=== PATIENT | female | born 1960 | race Caucasian/White ===

== ENCOUNTER 2019-01-19 08:44 | Observation (INO) | payer BC ==
[2019-01-19] MEDS ORDERED: LORazepam 2 MG/ML SDV IVPUSH ONE (08:53)
[2019-01-19] MEDS ORDERED: Nitroglycerin 2% Oint 1 GM UD Packet TOP ONE (08:53)
[2019-01-19] MEDS ORDERED: Aspirin 81 MG Tab.Chew PO ONE (08:53)
--- NOTE | 2019-01-19 08:59 | EDM.PDOC ---
ED HPI GENERAL MEDICAL PROBLEM - General Chief Complaint: Chest Pain Stated Complaint: SOB Time Seen by Provider: 01/19/19 08:47 - History of Present Illness INITIAL COMMENTS - FREE TEXT/NARRATIVE: HISTORY AND PHYSICAL: History of present illness: Patient is 58-year-old white female presents with a concern of shortness of breath and vague chest discomfort that started earlier today she had a similar episode years ago that was unexplained. She denies history of coronary artery disease stroke denies known hypertension hypercholesterolemia or diabetes. She' s quite anxious on arrival Review of systems: As per history of present illness and below otherwise all systems reviewed and negative. Past medical history: As per history of present illness and as reviewed below otherwise noncontributory. Surgical history: As per history of present illness and as reviewed below otherwise noncontributory. Social history: No reported history of drug or alcohol abuse. Family history: As per history of present illness and as reviewed below otherwise noncontributory. Physical exam: HEENT: Atraumatic, normocephalic, pupils reactive, negative for conjunctival pallor or scleral icterus, mucous membranes moist, throat clear, neck supple, nontender, trachea midline. Lungs: Clear to auscultation, breath sounds equal bilaterally, chest nontender. Heart: S1S2, regular, negative for clicks, rubs, or JVD. Abdomen: Soft, nondistended, nontender. Negative for masses or hepatosplenomegaly. Negative for costovertebral tenderness. Pelvis: Stable nontender. Genitourinary: Deferred. Rectal: Deferred. Extremities: Atraumatic, negative for cords or calf pain. Neurovascular unremarkable. Neuro: Awake, alert, oriented. Cranial nerves II through XII unremarkable. Cerebellum unremarkable. Motor and sensory unremarkable throughout. Exam nonfocal. Diagnostics: CBC CMP troponin PT/INR chest x-ray EKG Therapeutics: IV O2 monitor aspirin 325 mg by mouth Nitropaste 1 inch to chest wall Ativan 1 mg IV Impression: #1 dyspnea #2 chest Definitive disposition and diagnosis as appropriate pending reevaluation and review of above. Left Chest Pain Score (Numeric/FACES): 4 - Related Data Allergies Allergy/AdvReac Type Severity Reaction Status Date / Time Penicillins Allergy Airway Verified 01/19/19 09:35 Tightness Sulfa (Sulfonamide Allergy Hives Verified 01/19/19 09:35 Antibiotics) Home Meds: Home Meds . [No Known Home Meds] 01/19/19 [History] Past Medical History - Infectious Disease History Infectious Disease History: Reports: Chicken Pox - Past Surgical History Musculoskeletal Surgical History: Reports: Other (See Below) Other Musculoskeletal Surgeries/Procedures:: neck surgery, back surgery Social & Family History - Family History Family Medical History: Noncontributory - Tobacco Use Smoking Status *Q: Never Smoker - Recreational Drug Use Recreational Drug Use: No ED ROS GENERAL - Review of Systems Review Of Systems: ROS reveals no pertinent complaints other than HPI. ED EXAM, GENERAL - Physical Exam Exam: See Below (See dictation) Course - Vital Signs Last Recorded V/S: Last Vital Signs Temp 36.6 C 01/19/19 08:50 Pulse 86 01/19/19 08:50 Resp 18 01/19/19 08:50 BP 152/92 H 01/19/19 08:50 Pulse Ox 97 01/19/19 08:50 - Orders/Labs/Meds Orders: Active Orders 24 hr Category Date Time Status EKG 12 Lead [EKG Documentation Completion] [RC] STAT Care 01/19/19 10:09 Active EKG Documentation Completion [RC] STAT Care 01/19/19 08:52 Active Labs: Laboratory Tests 01/19/19 01/19/19 01/19/19 Range/Units 08:55 08:55 08:55 WBC 5.82 (4.0-11.0) K/uL RBC 4.89 (4.30-5.90) M/uL Hgb 15.4 (12.0-16.0) g/dL Hct 45.3 (36.0-46.0) % MCV 92.6 (80.0-98.0) fL MCH 31.5 (27.0-32.0) pg MCHC 34.0 (31.0-37.0) g/dL RDW Std Deviation 46.6 (28.0-62.0) fl RDW Coeff of Miguel 14 (11.0-15.0) % Plt Count 194 (150-400) K/uL MPV 10.00 (7.40-12.00) fL Neut % (Auto) 65.4 (48.0-80.0) % Lymph % (Auto) 21.6 (16.0-40.0) % [place] % (Auto) 9.3 (0.0-15.0) % Eos % (Auto) 3.4 (0.0-7.0) % Baso % (Auto) 0.3 (0.0-1.5) % Neut # (Auto) 3.8 (1.4-5.7) K/uL Lymph # (Auto) 1.3 (0.6-2.4) K/uL [place] # (Auto) 0.5 (0.0-0.8) K/uL Eos # (Auto) 0.2 (0.0-0.7) K/uL Baso # (Auto) 0.0 (0.0-0.1) K/uL Nucleated RBC % 0.0 /100WBC Nucleated RBCs # 0 K/uL INR 0.99 D-Dimer, Quantitative (0.0-0.50) mg/L FEU Sodium 137 (136-145) mmol/L Potassium 3.8 (3.5-5.1) mmol/L Chloride 103 (98-107) mmol/L Carbon Dioxide 23.5 (21.0-32.0) mmol/L BUN 10 (7.0-18.0) mg/dL Creatinine 1.0 (0.6-1.0) mg/dL Est Cr Clr Drug Dosing TNP Estimated GFR (MDRD) 56.7 ml/min Glucose 90 (74-106) mg/dL Calcium 9.4 (8.5-10.1) mg/dL Total Bilirubin 0.5 (0.2-1.0) mg/dL AST 37 (15-37) IU/L ALT 43 (14-63) IU/L Alkaline Phosphatase 78 (46-116) U/L Troponin I < 0.050 (0.000-0.056) ng/mL Total Protein 7.7 (6.4-8.2) g/dL Albumin 4.0 (3.4-5.0) g/dL Globulin 3.7 (2.6-4.0) g/dL Albumin/Globulin Ratio 1.1 (0.9-1.6) 01/19/19 Range/Units 08:55 WBC (4.0-11.0) K/uL RBC (4.30-5.90) M/uL Hgb (12.0-16.0) g/dL Hct (36.0-46.0) % MCV (80.0-98.0) fL MCH (27.0-32.0) pg MCHC (31.0-37.0) g/dL RDW Std Deviation (28.0-62.0) fl RDW Coeff of Miguel (11.0-15.0) % Plt Count (150-400) K/uL MPV (7.40-12.00) fL Neut % (Auto) (48.0-80.0) % Lymph % (Auto) (16.0-40.0) % [place] % (Auto) (0.0-15.0) % Eos % (Auto) (0.0-7.0) % Baso % (Auto) (0.0-1.5) % Neut # (Auto) (1.4-5.7) K/uL Lymph # (Auto) (0.6-2.4) K/uL [place] # (Auto) (0.0-0.8) K/uL Eos # (Auto) (0.0-0.7) K/uL Baso # (Auto) (0.0-0.1) K/uL Nucleated RBC % /100WBC Nucleated RBCs # K/uL INR D-Dimer, Quantitative 0.29 (0.0-0.50) mg/L FEU Sodium (136-145) mmol/L Potassium (3.5-5.1) mmol/L Chloride (98-107) mmol/L Carbon Dioxide (21.0-32.0) mmol/L BUN (7.0-18.0) mg/dL Creatinine (0.6-1.0) mg/dL Est Cr Clr Drug Dosing Estimated GFR (MDRD) ml/min Glucose (74-106) mg/dL Calcium (8.5-10.1) mg/dL Total Bilirubin (0.2-1.0) mg/dL AST (15-37) IU/L ALT (14-63) IU/L Alkaline Phosphatase (46-116) U/L Troponin I (0.000-0.056) ng/mL Total Protein (6.4-8.2) g/dL Albumin (3.4-5.0) g/dL Globulin (2.6-4.0) g/dL Albumin/Globulin Ratio (0.9-1.6) Meds: Medications Discontinued Medications Generic Name Dose Route Start Last Admin Trade Name Yazmin PRN Reason Stop Dose Admin Aspirin 324 mg 01/19/19 08:53 01/19/19 09:08 Aspirin PO 01/19/19 08:54 324 mg ONETIME ONE Administration Lorazepam 1 mg 01/19/19 08:53 01/19/19 09:10 Ativan IVPUSH 01/19/19 08:54 1 mg ONETIME ONE Administration Nitroglycerin 1 gm 01/19/19 08:53 01/19/19 09:06 Nitro-Bid 2% TOP 01/19/19 08:54 1 gm ONETIME ONE Administration Departure - Departure Time of Disposition: 10:49 Disposition: Refer to Observation Condition: Good Clinical Impression: Chest pain - Discharge Information Forms: ED Department Discharge - My Orders Last 24 Hours: My Active Orders 01/19/19 08:52 EKG Documentation Completion [RC] STAT 01/19/19 10:09 EKG 12 Lead [EKG Documentation Completion] [RC] STAT - Assessment/Plan Last 24 Hours: My Active Orders 01/19/19 08:52 EKG Documentation Completion [RC] STAT 01/19/19 10:09 EKG 12 Lead [EKG Documentation Completion] [RC] STAT
--- NOTE | 2019-01-19 09:30 | CR ---
EXAMINATION: Portable chest radiograph. HISTORY: Chest pain. FINDINGS: The trachea is midline. The cardiomediastinal silhouette is within normal limits. No pulmonary infiltrates, effusions or pneumothorax. Osseous structures appear unremarkable. IMPRESSION: No acute cardiopulmonary process.
[2019-01-19 09:40] LABS: CHLORIDE,CL 103 mmol/L (98-107); SODIUM,NA 137 mmol/L (136-145)
[2019-01-19] MEDS ORDERED: Ondansetron 4 MG/2 ML SDV IVPUSH PRN (12:02)
[2019-01-19] MEDS ORDERED: Albuterol/Ipratropium 3.0-0.5 MG/3 ML Neb Soln NEB PRN (12:02)
[2019-01-19] MEDS ORDERED: Acetaminophen 325 MG Tab PO PRN (12:02)
[2019-01-19] MEDS ORDERED: predniSONE 20 MG Tab PO ONE (12:04)
[2019-01-19] MEDS ORDERED: Levofloxacin 500 MG Tab PO SCH (12:15)
--- NOTE | 2019-01-19 12:16 | PCM.HP ---
H&P History of Present Illness - General Date of Service: 01/19/19 Admit Problem/Dx: Admission Diagnosis/Problem Admission Diagnosis/Problem Chest pain - History of Present Illness Initial Comments - Free Text/Narative: 58 yo female who reports several week history of worsening cough and cold symptoms. She reports productive cough and chest congestion. She reports subjective fevers. She reports one week of chest tightness and one day history of shortness of breath. She reports pleuritic chest pain when she takes a deep breath. In the ED she was noted to have a heart rate of 77 bpm. Left Chest Pain Score (Numeric/FACES): 4 - Related Data Allergies/Adverse Reactions: Allergies Allergy/AdvReac Type Severity Reaction Status Date / Time Penicillins Allergy Airway Verified 01/19/19 09:35 Tightness Sulfa (Sulfonamide Allergy Hives Verified 01/19/19 09:35 Antibiotics) Home Medications: Home Meds . [No Known Home Meds] 01/19/19 [History] Past Medical History - Infectious Disease History Infectious Disease History: Reports: Chicken Pox - Past Surgical History Musculoskeletal Surgical History: Reports: Other (See Below) Other Musculoskeletal Surgeries/Procedures:: neck surgery, back surgery Social & Family History - Family History Family Medical History: Noncontributory - Tobacco Use Smoking Status *Q: Never Smoker - Recreational Drug Use Recreational Drug Use: No H&P Review of Systems - Review of Systems: Review Of Systems: ROS reveals no pertinent complaints other than HPI. Exam - Exam Exam: See Below - Vital Signs Vital Signs: Last Vital Signs Temp 36.6 C 01/19/19 08:50 Pulse 86 01/19/19 08:50 Resp 18 01/19/19 08:50 BP 152/92 H 01/19/19 08:50 Pulse Ox 97 01/19/19 08:50 Weight: 66.7 kg - Exam General: Alert, Oriented Lungs: Clear to Auscultation, Normal Respiratory Effort Cardiovascular: Regular Rate, Regular Rhythm GI/Abdominal Exam: Soft, Non-Tender Extremities: Non-Tender, No Pedal Edema Skin: Warm, Dry, Intact - Patient Data Lab Results Last 24 hrs: Laboratory Results - last 24 hr 01/19/19 01/19/19 01/19/19 Range/Units 08:55 08:55 08:55 WBC 5.82 (4.0-11.0) K/uL RBC 4.89 (4.30-5.90) M/uL Hgb 15.4 (12.0-16.0) g/dL Hct 45.3 (36.0-46.0) % MCV 92.6 (80.0-98.0) fL MCH 31.5 (27.0-32.0) pg MCHC 34.0 (31.0-37.0) g/dL RDW Std Deviation 46.6 (28.0-62.0) fl RDW Coeff of Miguel 14 (11.0-15.0) % Plt Count 194 (150-400) K/uL MPV 10.00 (7.40-12.00) fL Neut % (Auto) 65.4 (48.0-80.0) % Lymph % (Auto) 21.6 (16.0-40.0) % [place] % (Auto) 9.3 (0.0-15.0) % Eos % (Auto) 3.4 (0.0-7.0) % Baso % (Auto) 0.3 (0.0-1.5) % Neut # (Auto) 3.8 (1.4-5.7) K/uL Lymph # (Auto) 1.3 (0.6-2.4) K/uL [place] # (Auto) 0.5 (0.0-0.8) K/uL Eos # (Auto) 0.2 (0.0-0.7) K/uL Baso # (Auto) 0.0 (0.0-0.1) K/uL Nucleated RBC % 0.0 /100WBC Nucleated RBCs # 0 K/uL INR 0.99 D-Dimer, Quantitative (0.0-0.50) mg/L FEU Sodium 137 (136-145) mmol/L Potassium 3.8 (3.5-5.1) mmol/L Chloride 103 (98-107) mmol/L Carbon Dioxide 23.5 (21.0-32.0) mmol/L BUN 10 (7.0-18.0) mg/dL Creatinine 1.0 (0.6-1.0) mg/dL Est Cr Clr Drug Dosing TNP Estimated GFR (MDRD) 56.7 ml/min Glucose 90 (74-106) mg/dL Calcium 9.4 (8.5-10.1) mg/dL Total Bilirubin 0.5 (0.2-1.0) mg/dL AST 37 (15-37) IU/L ALT 43 (14-63) IU/L Alkaline Phosphatase 78 (46-116) U/L Troponin I < 0.050 (0.000-0.056) ng/mL Total Protein 7.7 (6.4-8.2) g/dL Albumin 4.0 (3.4-5.0) g/dL Globulin 3.7 (2.6-4.0) g/dL Albumin/Globulin Ratio 1.1 (0.9-1.6) 01/19/19 Range/Units 08:55 WBC (4.0-11.0) K/uL RBC (4.30-5.90) M/uL Hgb (12.0-16.0) g/dL Hct (36.0-46.0) % MCV (80.0-98.0) fL MCH (27.0-32.0) pg MCHC (31.0-37.0) g/dL RDW Std Deviation (28.0-62.0) fl RDW Coeff of Miguel (11.0-15.0) % Plt Count (150-400) K/uL MPV (7.40-12.00) fL Neut % (Auto) (48.0-80.0) % Lymph % (Auto) (16.0-40.0) % [place] % (Auto) (0.0-15.0) % Eos % (Auto) (0.0-7.0) % Baso % (Auto) (0.0-1.5) % Neut # (Auto) (1.4-5.7) K/uL Lymph # (Auto) (0.6-2.4) K/uL [place] # (Auto) (0.0-0.8) K/uL Eos # (Auto) (0.0-0.7) K/uL Baso # (Auto) (0.0-0.1) K/uL Nucleated RBC % /100WBC Nucleated RBCs # K/uL INR D-Dimer, Quantitative 0.29 (0.0-0.50) mg/L FEU Sodium (136-145) mmol/L Potassium (3.5-5.1) mmol/L Chloride (98-107) mmol/L Carbon Dioxide (21.0-32.0) mmol/L BUN (7.0-18.0) mg/dL Creatinine (0.6-1.0) mg/dL Est Cr Clr Drug Dosing Estimated GFR (MDRD) ml/min Glucose (74-106) mg/dL Calcium (8.5-10.1) mg/dL Total Bilirubin (0.2-1.0) mg/dL AST (15-37) IU/L ALT (14-63) IU/L Alkaline Phosphatase (46-116) U/L Troponin I (0.000-0.056) ng/mL Total Protein (6.4-8.2) g/dL Albumin (3.4-5.0) g/dL Globulin (2.6-4.0) g/dL Albumin/Globulin Ratio (0.9-1.6) Result Diagrams: 01/19/19 08:55 01/19/19 08:55 Joel Results Last 24 hrs: Microbiology 01/19/19 08:56 Influenza Type A Antigen Screen - Final Nasopharyngeal Swab NEGATIVE INFLUENZA A VIRUS AG Influenza Type B Antigen Screen - Final NEGATIVE INFLUENZA B VIRUS AG Problem List Initiated/Reviewed/Updated: Yes Orders Last 24hrs: Active Orders 24 hr Category Date Time Status Patient Status [ADT] Stat ADT 01/19/19 10:54 Active Antiembolic Devices [RC] PER UNIT ROUTINE Care 01/19/19 12:03 Ordered EKG 12 Lead [EKG Documentation Completion] [RC] STAT Care 01/19/19 10:09 Active EKG Documentation Completion [RC] STAT Care 01/19/19 08:52 Active Oxygen Therapy [RC] PRN Care 01/19/19 12:02 Ordered RT Aerosol Therapy [RC] ASDIRECTED Care 01/19/19 12:03 Ordered Up ad An [RC] ASDIRECTED Care 01/19/19 12:02 Ordered VTE/DVT Education [RC] PER UNIT ROUTINE Care 01/19/19 12:02 Ordered Vital Signs [RC] Q4H Care 01/19/19 12:02 Ordered Regular Diet [DIET] Diet 01/19/19 Breakfast Ordered BASIC METABOLIC PANEL,BMP [CHEM] AM Lab 01/20/19 05:11 Ordered CBC WITH AUTO DIFF [HEME] AM Lab 01/20/19 05:11 Ordered TROPONIN I [CHEM] Q6H Lab 01/19/19 15:00 Ordered TROPONIN I [CHEM] Q6H Lab 01/19/19 21:00 Ordered Acetaminophen [Tylenol] Med 01/19/19 12:02 Ordered 650 mg PO Q4H PRN Albuterol/Ipratropium [DuoNeb 3.0-0.5 MG/3 ML] Med 01/19/19 12:02 Ordered 3 ml NEB Q4HRRT PRN Ondansetron [Zofran] Med 01/19/19 12:02 Ordered 4 mg IVPUSH Q4H PRN levoFLOXacin [Levaquin] Med 01/19/19 12:15 Ordered 500 mg PO Q24H predniSONE Med 01/19/19 12:04 Once 40 mg PO ONETIME ONE Sequential Compression Device [OM.PC] Per Unit Routine Oth 01/19/19 12:03 Ordered Resuscitation Status Routine Resus Stat 01/19/19 12:02 Ordered Assessment/Plan Comment:: 58 yo female presenting with cough, shortness of breath and chest pain. Suspect acute bronchitis Bronchitis: treating with duonebs, levaquin and prednisone Atypical chest pain: EKG showed minimal ST segment depressions on inferior leads , will trend cardiac enzymes
[2019-01-19] MEDS ORDERED: Sodium Chloride 0.65% Nasal Spray 45 ML Bottle NAS PRN (18:33)
[2019-01-19] MEDS ORDERED: Benzonatate 100 MG Cap PO PRN (18:50)
[2019-01-19] MEDS ORDERED: SUMAtriptan 50 MG Tab PO ONE (19:34)
[2019-01-20 05:35] LABS: CHLORIDE,CL 103 mmol/L (98-107); SODIUM,NA 139 mmol/L (136-145)
--- NOTE | 2019-01-20 20:03 | PCM.DCSUM1 ---
Discharge Summary - Hospital Course Diagnosis: Stroke: No Modified Gadsden Scale: No Symptoms at All Modified Gadsden Scale Score: 0 - Discharge Data Discharge Disposition: Home, Self-Care 01 Condition: Stable - Patient Instructions Diet: Usual Diet as Tolerated - Discharge Plan Prescriptions/Med Rec: Albuterol Sulfate [Proair Hfa] 8.5 gm IH Q6H PRN 30 Days #1 hfa.aer.ad PRN Reason: Shortness Of Breath levoFLOXacin [Levaquin] 500 mg PO Q24H 4 Days #4 tablet Home Medications: Home Meds Albuterol Sulfate [Proair Hfa] 8.5 gm IH Q6H PRN 30 Days #1 hfa.aer.ad 01/20/19 [Rx] levoFLOXacin [Levaquin] 500 mg PO Q24H 4 Days #4 tablet 01/20/19 [Rx] Patient Handouts: Nonspecific Chest Pain, [id number], Levofloxacin tablets, Albuterol inhalation solution Forms: Return to Work/Inpatient [facility] Referrals: Fide Hdez MD [Ordering Only Provider] - 01/28/19 9:15 am - Patient Data Vitals - Most Recent: Last Vital Signs Temp 36.5 C 01/20/19 07:46 Pulse 92 01/20/19 07:46 Resp 15 01/20/19 07:46 BP 130/101 H 01/20/19 07:46 Pulse Ox 97 01/20/19 07:46 Weight - Most Recent: 66.7 kg I&O - Last 24 hours: Intake & Output 01/20/19 01/20/19 01/20/19 06:59 14:59 22:59 Intake Total 900 Output Total 900 Balance 0 Lab Results - Last 24 hrs: Laboratory Results - last 24 hr 01/19/19 01/20/19 01/20/19 Range/Units 21:06 04:58 04:58 WBC 4.12 (4.0-11.0) K/uL RBC 4.85 (4.30-5.90) M/uL Hgb 15.3 (12.0-16.0) g/dL Hct 44.7 (36.0-46.0) % MCV 92.2 (80.0-98.0) fL MCH 31.5 (27.0-32.0) pg MCHC 34.2 (31.0-37.0) g/dL RDW Std Deviation 44.9 (28.0-62.0) fl RDW Coeff of Miguel 13 (11.0-15.0) % Plt Count 204 (150-400) K/uL MPV 9.90 (7.40-12.00) fL Neut % (Auto) 87.0 H (48.0-80.0) % Lymph % (Auto) 10.9 L (16.0-40.0) % Lucas % (Auto) 1.9 (0.0-15.0) % Eos % (Auto) 0.0 (0.0-7.0) % Baso % (Auto) 0.2 (0.0-1.5) % Neut # (Auto) 3.6 (1.4-5.7) K/uL Lymph # (Auto) 0.5 L (0.6-2.4) K/uL Lucas # (Auto) 0.1 (0.0-0.8) K/uL Eos # (Auto) 0.0 (0.0-0.7) K/uL Baso # (Auto) 0.0 (0.0-0.1) K/uL Nucleated RBC % 0.0 /100WBC Nucleated RBCs # 0 K/uL Sodium 139 (136-145) mmol/L Potassium 4.3 (3.5-5.1) mmol/L Chloride 103 (98-107) mmol/L Carbon Dioxide 25.7 (21.0-32.0) mmol/L BUN 11 (7.0-18.0) mg/dL Creatinine 0.7 (0.6-1.0) mg/dL Est Cr Clr Drug Dosing 71.58 mL/min Estimated GFR (MDRD) > 60.0 ml/min Glucose 133 H (74-106) mg/dL Calcium 9.5 (8.5-10.1) mg/dL Troponin I < 0.050 (0.000-0.056) ng/mL Med Orders - Current: Current Medications Discontinued Medications Acetaminophen (Tylenol) 650 mg PO Q4H PRN PRN Reason: Pain (Mild 1-3)/fever Last Admin: 01/19/19 13:57 Dose: 650 mg Albuterol/Ipratropium (Duoneb 3.0-0.5 Mg/3 Ml) 3 ml NEB Q4HRRT PRN PRN Reason: Shortness Of Breath/wheezing Last Admin: 01/19/19 15:00 Dose: 3 ml Aspirin (Aspirin) 324 mg PO ONETIME ONE Stop: 01/19/19 08:54 Last Admin: 01/19/19 09:08 Dose: 324 mg Benzonatate (Tessalon Perles) 100 mg PO TID PRN PRN Reason: Cough Last Admin: 01/19/19 19:19 Dose: 100 mg Levofloxacin (Levaquin) 500 mg PO Q24H JOLYNN Last Admin: 01/19/19 13:55 Dose: 500 mg Lorazepam (Ativan) 1 mg IVPUSH ONETIME ONE Stop: 01/19/19 08:54 Last Admin: 01/19/19 09:10 Dose: 1 mg Nitroglycerin (Nitro-Bid 2%) 1 gm TOP ONETIME ONE Stop: 01/19/19 08:54 Last Admin: 01/19/19 09:06 Dose: 1 gm Ondansetron HCl (Zofran) 4 mg IVPUSH Q4H PRN PRN Reason: Nausea Prednisone (Prednisone) 40 mg PO ONETIME ONE Stop: 01/19/19 12:05 Last Admin: 01/19/19 13:55 Dose: 40 mg Sodium Chloride ([place] Nasal [place]) 0 ml MONIKA Q2H PRN PRN Reason: Congestion Last Admin: 01/19/19 19:18 Dose: 1 spray Sumatriptan Succinate (Imitrex) 50 mg PO ONETIME ONE Stop: 01/19/19 19:35 Last Admin: 01/19/19 19:55 Dose: 50 mg
== END 2019-01-20 10:00 | disposition home or self-care (01) ==
LOC: MW.ED 08:44 → MW.ICU 11:43
PROVIDERS: ADMIT Internal Medicine; ATTEND Internal Medicine
DX: R07.89 Other chest pain (principal); J40 Bronchitis, not specified as acute or chronic; Z88.0 Allergy status to penicillin; Z88.2 Allergy status to sulfonamides
CPT/HCPCS: 36415; 71045; 80048; 80053; 84484; 85025; 85379; 85610; 87804; 93005; 94640; 96374; 99285; A9270; G0378; J2060; J7620-GY